=== PATIENT | male | born 1985 | race African-American/Black ===

== ENCOUNTER 2018-02-21 11:21 | Emergency (ER) ==
[2018-02-21 11:29] VITALS: BP 135/85; TEMP 97.7; BMI 30.9
--- NOTE | 2018-02-21 12:33 | CT ---
EXAM: CT right knee without contrast HISTORY: Knee is swollen and warm to touch COMPARISON: None TECHNIQUE: CT right knee performed without intravenous contrast. Coronal and sagittal reformatted i mages obtained. FINDINGS: Bone mineralization is normal. No fracture or dislocation. No cortical destruction to sug gest osteomyelitis. Very small knee joint effusion. Subcutaneous edema about the anterior knee, cent ered in the prepatellar region. No focal drainable collection. IMPRESSION: 1. Subcutaneous edema about the anterior knee, centered in the prepatellar region. This likely repr esents cellulitis and clinical correlation is recommended. No focal drainable collection. 2. Very small knee joint effusion. 3. No fracture, dislocation, or CT findings of osteomyelitis.
[2018-02-21] MEDS ORDERED: ROCEPHIN IM STA (12:42)
[2018-02-21] MEDS ORDERED: LIDOCAINE HCL 1% SDV IM STA (12:42)
[2018-02-21] MEDS ORDERED: BACTRIM DS 800/160 MG PO STA (12:45)
--- NOTE | 2018-02-21 12:49 | ED.PDOC ---
General ED Provider: Dr. FREYA SEVILLA Chief Complaint: Knee Pain/Injury Stated Complaint: RASH AND RIGHT KNEE PAIN X 3 DAYS Time Seen by Physician: 11:22 (SEEN WITH LAMBERT OWEN AT ALL TIMES SEE PHOTOS) Mode of Arrival: Walk-In Information Source: Patient Exam Limitations: No limitations Nursing and Triage Documentation Reviewed and Agree: Yes (RASH WAS NOTED ALONG TITH RIGHT KNEE PAIN) Does patient meet sepsis criteria?: No (DENIED INJURY SEE PHOTOS) If yes, has appropriate treatment been initiated?: No (WAS SEEN AT [facility] 1 DAY AGO NO INJURY) System Inflammatory Response Syndrome: Not Applicable Sepsis Protocol: For patient's 13 years and over: Temp is 96.8 and below OR 101 and greater Pulse >90 BPM Resp >20/minute Acutely Altered Mental Status Are patient's symptoms suggestive of a new infection, such as: -Pneumonia -Skin, Soft Tissue -Endocarditis -UTI -Bone, Joint Infection -Implantable Device -Acute Abdominal Infection -Wound Infection -Meningitis -Blood Stream Catheter Infection -Unknown Musculoskeletal Complaint Exam - Knee Pain Complaint/Exam Onset/Duration: 1 TO 2 DAYS Symptoms Are: Still present Onset of Pain: Reports: Immediate Initial Severity: Moderate Current Severity: Mild Location: Reports: Discrete (RIGHT KNEE ) Character: Reports: Dull Alleviating: Reports: Rest Aggravating: Reports: None Associated Signs and Symptoms: Reports: Redness. Denies: Swelling, Bruising, Fever, Weakness, Numbness (FEELS WARM TO TOUCH RIGHT SIDE ) Able to Bear Weight: Yes Septic Arthritis Risk Factors: Reports: None Gout Risk Factors: Reports: None Related Surgical History: Denies: Right Knee, Left Knee, Other Orthopedic Surgery Knee Findings: Present: Erythema (SEE PHOTOS), Warmth, Tenderness, Limited range of motion. Absent: Swelling, Ecchymosis, Abnormal contour, Rotation, Foreign body Tenderness: Present: Pre-patellar Mo Test Positive: No Mike Test Positive: No Limited Range of Motion: Present: Active, Flexion, Extension Differential Diagnoses: Cellulitis, Closed Fracture, Sprain, Strain Review of Systems - Review Of Systems Constitutional: Reports: No symptoms Eyes: Reports: No symptoms Ears, Nose, Mouth, Throat: Reports: No symptoms Respiratory: Reports: No symptoms Cardiac: Reports: No symptoms GI: Reports: No symptoms : Reports: No symptoms Musculoskeletal: Reports: Joint pain (RIGHT KNEE ) Skin: Reports: No symptoms Neurological: Reports: No symptoms Endocrine: Reports: No symptoms Hematologic/Lymphatic: Reports: No symptoms All Other Systems: Reviewed and Negative Past Medical History - Past Medical History Previously Healthy: Yes Endocrine: Reports: None Cardiovascular: Reports: None Respiratory: Reports: None Hematological: Reports: None Gastrointestinal: Reports: None Genitourinary: Reports: None Neuro/Psych: Reports: None Musculoskeletal: Reports: None Cancer: Reports: None - Surgical History General Surgical History: Reports: None - Family History Family History: Reports: None - Social History Smoking Status: Current every day smoker, Heavy tobacco smoker Hx Substance Use: No Alcohol Screening: None Physical Exam - Physical Exam Appearance: Well-appearing, No pain distress, Well-nourished Eyes: MARILYN, EOMI, Conjunctiva clear ENT: Ears normal, Nose normal, Oropharynx normal Respiratory: Airway patent, Breath sounds clear, Breath sounds equal, Respirations nonlabored Cardiovascular: RRR, Pulses normal, No rub, No murmur GI/: Soft, Nontender, No masses, Bowel sounds normal, No Organomegaly Musculoskeletal: Limited ROM (RIGHT KNEE SEE PHOTOS OF THE IN FLEX , EXT VEIEWS ) Skin: Warm, Dry, Normal color, Pale, Diaphoretic, Cyanotic Neurological: Sensation intact, Motor intact, Reflexes intact, Cranial nerves intact, Alert, Oriented Psychiatric: Affect appropriate, Mood appropriate Interpretation - Radiology Interpretation Radiology Interpretation By: Radiologist Radiology Results: Positive (RIGHT KNEE CELLULITIS) Critical Care Note - Critical Care Note Total Time (mins): 0 Course - Course Hematology/Chemistry: 02/21/18 12:20 02/21/18 12:20 Orders, Labs, Meds: Lab Review 02/21/18 02/21/18 12:20 12:20 WBC 7.80 RBC 4.40 L Hgb 14.5 Hct 41.4 L MCV 94.1 H MCH 33.0 H MCHC 35.0 RDW Coeff of Kathleen 12.2 Plt Count 191 Immature Gran % (Auto) 0.1 Neut % (Auto) 61.2 Lymph % (Auto) 30.6 [place] % (Auto) 7.3 Eos % (Auto) 0.5 Baso % (Auto) 0.3 Immature Gran # (Auto) 0.0 Neut # (Auto) 4.8 Lymph # (Auto) 2.4 [place] # (Auto) 0.6 Eos # (Auto) 0.0 Baso # (Auto) 0.0 Sodium 140 Potassium 3.7 Chloride 106 Carbon Dioxide 27 Anion Gap 10.7 BUN 10 Creatinine 0.98 Estimated GFR (MDRD) 107.00 BUN/Creatinine Ratio 10.20 Glucose 110 H Calcium 9.2 Total Bilirubin 0.5 AST 26 ALT 59 Alkaline Phosphatase 112 Total Protein 6.9 Albumin 3.3 L Globulin 3.6 Albumin/Globulin Ratio 0.92 Orders Category Date Time Status BLOOD CULTURE (ED ONLY) Stat LAB 02/21/18 12:20 Results CBC W/ AUTO DIFF Stat LAB 02/21/18 12:20 Completed COMPREHENSIVE METABOLIC PANEL Stat LAB 02/21/18 12:20 Completed Ceftriaxone Sodium [Rocephin] MEDS 02/21/18 12:42 Discontinued 1 gm IM ONCE STA Lidocaine HCl/Pf [Lidocaine HCl 1% Sdv] MEDS 02/21/18 12:42 Discontinued 2.1 ml IM ONCE STA Sulfamethoxazole/Trimethoprim [Bactrim Ds 800/160 mg] MEDS 02/21/18 12:45 Discontinued 1 tab PO ONCE STA CT KNEE RIGHT WITHOUT CONTRAST Stat RADS 02/21/18 11:50 Completed Medications Discontinued Medications Generic Name Dose Route Start Last Admin Trade Name Freq PRN Reason Stop Dose Admin Ceftriaxone Sodium 1 gm 02/21/18 12:42 02/21/18 13:15 Rocephin IM 02/21/18 12:43 1 gm ONCE STA Administration Lidocaine HCl 2.1 ml 02/21/18 12:42 02/21/18 13:15 Lidocaine Hcl 1% Sdv IM 02/21/18 12:43 2.1 ml ONCE STA Administration Trimethoprim/Sulfamethoxazole 1 tab 02/21/18 12:45 02/21/18 13:13 Bactrim Ds 800/160 Mg PO 02/21/18 12:46 1 tab ONCE STA Administration Vital Signs: Temp Pulse Resp BP Pulse Ox 02/21/18 11:21 97.7 F 83 18 135/85 96 Departure - Departure Time of Disposition: 13:15 (SEE PHOTOS) Disposition: HOME SELF-CARE Discharge Problem: Knee pain, Cellulitis of right knee Instructions: Cellulitis (ED), Knee Pain (ED), Arthralgia (ED), Swollen Joint ( ED) Condition: Good Pt referred to PMD for follow-up: Yes IPMP verified?: No Additional Instructions: Please call your Family Physician as soon as possible to schedule a follow-up appointment. amoxicillin 875mg twice a day until gone#20 Bactrim DS twice a day for 7 days #14 Allergies/Adverse Reactions: Allergies tramadol Adverse Reaction (Verified 02/21/18 11:29) Home Medications: Ambulatory Orders 1 [No Reported Medications] 02/21/18 Disposition Discussed With: Patient
== END 2018-02-21 13:33 | disposition home or self-care (01) ==
LOC: ED 11:21
DX: M25.561 Pain in right knee (principal); L03.115 Cellulitis of right lower limb; F17.210 Nicotine dependence, cigarettes, uncomplicated
CPT/HCPCS: 36415; 80053; 85025; 87040; 96372; 99283